=== PATIENT | female | born 1925 | race Caucasian/White ===

== ENCOUNTER 2016-12-29 20:13 | Inpatient (IN) | payer MEDICARE, BC ==
[~2016-12-29] VITALS: Ht 160 cm; Wt 85.7 kg
[2016-12-30] VITALS (15 sets, daily range): BP systolic 120–172; RESP 18–24; TEMP 97–98; Ht 160 cm; Wt 85.7 kg
[2016-12-30] MEDS ORDERED: SALINE FLUSH 10 ML FLUSH PRN (01:35)
[2016-12-30] MEDS ORDERED: ACETAMINOPHEN 325 MG TAB PO PRN (01:35)
[2016-12-30] MEDS ORDERED: MAG HYDROX 30 ML UDC PO PRN (01:35)
[2016-12-30] MEDS ORDERED: ALU/MAG/SIM 30 ML UDC PO PRN (01:35)
[2016-12-30] MEDS ORDERED: ONDANSETRON 4 MG VIAL IV PRN (01:35)
[2016-12-30] MEDS ORDERED: BISACODYL EC 5 MG TAB PO PRN (01:35)
[2016-12-30] MEDS ORDERED: BISACODYL 10 MG SUPP RECTAL PRN (01:35)
[2016-12-30] MEDS: SODIUM CHLORIDE 0.9% FLUSH BAG 500 ML IV SCH (04:17)
[2016-12-30] MEDS ORDERED: ASPIRIN 81 MG CHEW TAB PO SCH (09:00)
[2016-12-30] MEDS: ASPIRIN EC 81 MG TAB PO SCH (10:17)
[2016-12-30] MEDS: SALINE FLUSH 10 ML FLUSH SCH ×2 (10:17→20:37)
[2016-12-30] MEDS ORDERED: NITROGLYCERIN SL 0.4 MG TAB SL PRN (16:05)
[2016-12-30] MEDS: VENLAFAXINE HCL 75 MG TAB PO SCH (17:04)
[2016-12-30] MEDS: ISOSORBIDE MONO 30 MG TAB PO SCH (17:04)
[2016-12-30] MEDS: GABAPENTIN 300 MG CAP PO SCH ×2 (17:05→20:31)
[2016-12-30] MEDS: PRIMIDONE 50 MG TAB PO SCH (17:05)
[2016-12-30] MEDS: PRAVASTATIN 20 MG TAB PO SCH (20:31)
[2016-12-31] VITALS (7 sets, daily range): BP systolic 121–175; RESP 18–19; TEMP 97.5–98
[2016-12-31] MEDS: SODIUM CHLORIDE 0.9% FLUSH BAG 500 ML IV SCH (05:06)
[2016-12-31] MEDS: SALINE FLUSH 10 ML FLUSH SCH ×2 (08:49→20:25)
[2016-12-31] MEDS: GABAPENTIN 300 MG CAP PO SCH ×3 (08:50→20:25)
[2016-12-31] MEDS: ISOSORBIDE MONO 30 MG TAB PO SCH (08:50)
[2016-12-31] MEDS: ASPIRIN EC 81 MG TAB PO SCH (08:50)
[2016-12-31] MEDS: VENLAFAXINE HCL 75 MG TAB PO SCH (08:50)
[2016-12-31] MEDS: PRIMIDONE 50 MG TAB PO SCH ×2 (08:50→20:25)
[2016-12-31] MEDS ORDERED: MISSING DOSE XX ONE (20:15)
[2016-12-31] MEDS: PRAVASTATIN 20 MG TAB PO SCH (20:25)
== END 2016-12-31 21:00 | DRG 69 ==
LOC: ENRESERVDT → ENRESERVTM → ER 20:13 → EMR 20:14 → PCU 12-30 02:38 → OBSVTOIN 12-31 08:18
PROVIDERS: ADMIT Family Medicine; ATTEND Family Medicine
DX: G45.9 Transient cerebral ischemic attack, unspecified (principal); I50.31 Acute diastolic (congestive) heart failure; G93.41 Metabolic encephalopathy; I10 Essential (primary) hypertension; I25.10 Atherosclerotic heart disease of native coronary artery without angina pectoris; Z95.5 Presence of coronary angioplasty implant and graft; F32.9 Major depressive disorder, single episode, unspecified; I11.0 Hypertensive heart disease with heart failure; M62.84 Sarcopenia; E66.9 Obesity, unspecified; Z68.33 Body mass index [BMI] 33.0-33.9, adult; G62.9 Polyneuropathy, unspecified; Z87.891 Personal history of nicotine dependence; Z66 Do not resuscitate
CPT/HCPCS: 36415; 70450; 70551; 71010; 72148; 80048; 80053; 80061; 81003; 82553; 82947; 84145; 84484; 85025; 85384; 85610; 85652; 85730; 86141; 87493; 93005; 93306; 93880; 94799; 99220; 99233; 99239